=== PATIENT | female | born 1945 | race Caucasian/White ===

== ENCOUNTER → 2017-11-27 | Outpatient (CLI) | payer OTHER | END | disposition home or self-care (01) | LOC: KCIC 11:41 | DX: Z01.818 Encounter for other preprocedural examination (principal); I10 Essential (primary) hypertension; E78.5 Hyperlipidemia, unspecified; Z87.891 Personal history of nicotine dependence | CPT/HCPCS: 71046 ==

== ENCOUNTER → 2021-07-24 | Outpatient (CLI) | payer MEDICARE ==
[2015-06-07 17:12] VITALS: BP 157/80
--- NOTE | 2021-07-24 12:27 | KCIC ---
EXAM: Chest, 2 views. HISTORY: Arthroplasty. COMPARISON: 11/27/2017. FINDINGS: 2 views of chest are obtained. There is no infiltrate, pleural effusion or pneumothorax. Th e heart is normal in size. There is stable linear scarring within the lingula. There is incidental de generative change involving both shoulders. IMPRESSION: No acute pulmonary finding. Electronically signed by: Priya Segura MD (07/24/2021 12:24 PM) [id number]
== END ==
LOC: KCIC 11:47
PROVIDERS: ATTEND Family Medicine
DX: Z01.818 Encounter for other preprocedural examination (principal); Z96.611 Presence of right artificial shoulder joint
CPT/HCPCS: 71046

== ENCOUNTER → 2021-08-07 | Outpatient (CLI) | payer MEDICARE ==
[2015-06-07 17:12] VITALS: BP 157/80
--- NOTE | 2021-08-07 15:25 | CARD ---
MR#: [id number] Date of Study: 08/07/2021 Ordering Physician: FRANKLIN BERNARD, Referring Physician: FRANKLIN BERNARD Tech: Keke Chun [facility] APPROVED REPORT EXAM: Two-dimensional and M-mode echocardiogram with Doppler and color Doppler. Other Information Quality : AverageHR: 69bpm Rhythm : NSR INDICATION Palpitations RISK FACTORS Hypertension Obesity Hyperlipidemia 2D DIMENSIONS RVDd3.2 (2.9-3.5cm)Left Atrium(2D)4.1 (1.6-4.0cm) IVSd1.1 (0.7-1.1cm)Aortic Root(2D)3.1 (2.0-3.7cm) LVDd5.1 (3.9-5.9cm)LVOT Diameter2.1 (1.8-2.4cm) PWd1.2 (0.7-1.1cm)LVDs2.5 (2.5-4.0cm) FS (%) 51.3 %SV100.7 ml LVEF(%)82.3 (>50%) Aortic Valve AoV Peak Nii.170.4cm/sAoV VTI37.9cm AO Peak GR.11.6mmHgLVOT Peak Nii.99.1cm/s AO Mean GR.6mmHgAVA (VMAX)2.02cm2 Mitral Valve MV E Eteikrlh73.7cm/sMV DECEL [id number] MV A Nplhkfkv69.0cm/sE/A Ratio1.0 Tricuspid Valve TR P. Cqsxsltm086pf/sTR Peak Gr.29mmHg LEFT VENTRICLE The left ventricle is normal size. There is mild concentric left ventricular hypertrophy. The left ve ntricular systolic function is normal and the ejection fraction is within normal range. Estimated eje ction 55-60%. There is normal LV segmental wall motion. Tissue Doppler imaging reveals moderate left ventricular diastolic dysfunction. RIGHT VENTRICLE The right ventricle is normal size. There is normal right ventricular wall thickness. The right ventr icular systolic function is normal. ATRIA The left atrium is mildly dilated. The right atrium is mildly dilated. The interatrial septum is inta ct with no evidence for an atrial septal defect or patent foramen ovale as noted on 2-D or Doppler im aging. AORTIC VALVE The aortic valve is thickened but opens well. Doppler and Color Flow revealed trace aortic regurgitat ion. There is no significant aortic valvular stenosis. MITRAL VALVE The mitral valve is normal in structure and function. There is no evidence of mitral valve prolapse. There is no mitral valve stenosis. Doppler and Color-flow revealed mild mitral regurgitation. TRICUSPID VALVE The tricuspid valve is normal in structure and function. Doppler and Color Flow revealed mild tricusp id regurgitation. Estimated PAP 33-35 mmHg. There is no tricuspid valve stenosis. PULMONIC VALVE Doppler and Color Flow revealed trace to mild pulmonic valvular regurgitation. There is no pulmonic v alvular stenosis. GREAT VESSELS The aortic root is normal in size. The ascending aorta is normal in size. The IVC is normal in size a nd collapses >50% with inspiration. PERICARDIAL EFFUSION There is no evidence of significant pericardial effusion. Critical Notification Critical Value: No <Conclusion> The left ventricular systolic function is normal and the ejection fraction is within normal range. E stimated ejection 55-60%. There is normal LV segmental wall motion. Signed by : Trae Juarez, Electronically Approved : 08/07/2021 15:24:54
== END ==
LOC: ECHO 08:24
PROVIDERS: ATTEND Internal Medicine Cardiovascular Disease
DX: I08.8 Other rheumatic multiple valve diseases (principal); I49.9 Cardiac arrhythmia, unspecified
CPT/HCPCS: 93306; C8929